=== PATIENT | female | born 1985 | race Caucasian/White ===

== ENCOUNTER 2017-01-19 11:10 | Emergency (ER) | payer OTHER ==
[~2017-01-19] VITALS: Ht 167.6 cm; Wt 83.9 kg
[~2017-01-19 11:10] MED LIST: SULF1TAB23 PO
[2017-01-19 11:41] VITALS: BP 138/88
[2017-01-19] MEDS ORDERED: SULF1TAB24 PO (12:09)
--- NOTE | 2017-01-19 12:09 | PHYS DOC ---
Past History Past Medical History: No Pertinent History Past Surgical History: Other Alcohol Use: None Drug Use: None Adult General Chief Complaint Chief Complaint: SKIN RASH/ABSCESS [facility] HPI Patient is a 31 year old female who presents with a skin rash she had since the of her child and she states nobody else in the family has any rash like this. She's been itching him. She's not been doing anything for the rash. Babies 1-month-old and she's not breast-feeding. Review of Systems Review of Systems Constitutional: Denies fever or chills [] Eyes: Denies change in visual acuity, redness, or eye pain [] HENT: Denies nasal congestion or sore throat [] Respiratory: Denies cough or shortness of breath [] Cardiovascular: No additional information not addressed in HPI [] GI: Denies abdominal pain, nausea, vomiting, bloody stools or diarrhea [] : Denies dysuria or hematuria [] Musculoskeletal: Denies back pain or joint pain [] Integument: Positive for skin lesions Neurologic: Denies headache, focal weakness or sensory changes [] Endocrine: Denies polyuria or polydipsia [] All other systems were reviewed and found to be within normal limits, except as documented in this note. Allergies Allergies Allergies Coded Allergies Type Severity Reaction Last Updated Verified No Known Drug Allergies 03/08/16 No Physical Exam Physical Exam Constitutional: Well developed, well nourished, no acute distress, non-toxic appearance. [] HENT: Normocephalic, atraumatic, bilateral external ears normal, oropharynx moist, no oral exudates, nose normal. [] Eyes: PERRLA, EOMI, conjunctiva normal, no discharge. [] Neck: Normal range of motion, no tenderness, supple, no stridor. [] Cardiovascular:Heart rate regular rhythm, no murmur [] Lungs & Thorax: Bilateral breath sounds clear to auscultation [] Abdomen: Bowel sounds normal, soft, no tenderness, no masses, no pulsatile masses. [] Skin: Warm, dry, no erythema, erythema around hair follicles on abdomen, numerous wounds on bilateral arms, no lesions noted on areas between fingers. Back: No tenderness, no CVA tenderness. [] Extremities: No tenderness, no cyanosis, no clubbing, ROM intact, no edema. [] Neurologic: Alert and oriented X 3, normal motor function, normal sensory function, no focal deficits noted. [] Psychologic: Affect normal, judgement normal, mood normal. [] Current Patient Data Vital Signs Vital Signs Date Time Temp Pulse Resp B/P (MAP) Pulse Ox O2 Delivery O2 Flow Rate FiO2 01/19/17 11:41 97.7 95 16 97 Room Air EKG EKG [] Radiology/Procedures Radiology/Procedures [] Impressions: Folliculitis Course & Med Decision Making Course & Med Decision Making Pertinent Labs and Imaging studies reviewed. (See chart for details) I believe she has folliculitis. Will discharge with Bactrim and Hibiclens. Return precautions given. She is agreeable to the plan and being discharged in stable condition this time. Patient was discharged without her tetanus being updated. I called her at home and she is unsure when her last tetanus shot was even though she had a baby 1 month ago. I've offered her a tetanus shot if she returns back to the ER. She states that she and find a ride she will come back to ER. Dragon Disclaimer Dragon Disclaimer This electronic medical record was generated, in whole or in part, using a voice recognition dictation system. Departure Departure: Impression: Primary Impression: Folliculitis Disposition: 01 HOME, SELF-CARE Condition: STABLE Referrals: PCP,JOAO (PCP) Patient Instructions: Cellulitis Additional Instructions: Your skin looks like you have an infection and some of the hair follicles. We call this folliculitis. You will need take Bactrim 1 pill twice a day for the next 7 days. You'll also purchase Hibiclens they can purchase in the pharmacy and watch with it every other day for a week. If you develop high fevers, worsening rash, or other concerns please return back to ER. You will need to follow up with her primary care physician within the next 4-5 days. Do not breast-feed while taking Bactrim. Scripts Sulfamethoxazole/Trimethoprim (BACTRIM DS TABLET) 1 Each Tablet 1 TAB PO BID, #14 TAB Prov: OLVIN BOWLING MD 01/19/17 OLVIN BOWLING MD Jan 19, 2017 12:09
== END 2017-01-19 12:18 | disposition home or self-care (01) ==
LOC: ER 11:10
DX: L73.9 Follicular disorder, unspecified (principal)
CPT/HCPCS: 99283

== ENCOUNTER 2017-03-16 13:26 | Emergency (ER) | payer OTHER ==
[~2017-03-16 13:26] MED LIST changes: +SULF1TAB24 PO
[2017-03-16] MEDS ORDERED: IBUP600T16 PO (13:44)
[2017-03-16] MEDS ORDERED: SULF1TAB24 PO (13:44)
--- NOTE | 2017-03-16 13:44 | PHYS DOC ---
Past History Past Medical History: No Pertinent History Past Surgical History: Other Alcohol Use: None Drug Use: None Adult General Chief Complaint Chief Complaint: INSECT BITE HPI HPI Patient is a 31-year-old female who presents here today complaining of a red indurated swollen area to her left lower quadrant of her abdomen that shewoke up this morning. Patient reports areas tender to palpation. Patient per she thinks she opted by an insect. Patient denies any other past medical history. Patient has any history of hypertension diabetes liver longer kidney problems. Patient is not allergic to any medications. Patient reports she smokes, occasional alcohol no drugs. Patient has any recent fevers shakes chills nausea vomiting diarrhea dysuria frequency or urgency. Review of systems: Constitutional: Denies fever or chills Eyes: Denies change in visual acuity, redness, or eye pain HENT: Denies nasal congestion or sore throat Respiratory: Denies cough or shortness of breath All other systems were reviewed and found to be within normal limits, except as documented in this note. Physical exam: Constitutional: Well developed, well nourished, no acute distress, non-toxic appearance. HENT: Normocephalic, atraumatic, bilateral external ears normal, nose normal. Eyes: PERRLA, EOMI, conjunctiva normal, no discharge. Neck: Normal range of motion, no tenderness, supple, no stridor. Cardiovascular: Heart rate regular rhythm, Lungs & Thorax: Bilateral breath sounds clear to auscultation Abdomen: No abdominal distention. Skin: Warm, dry, no erythema, Back: Normal spinal curvature Extremities: No tenderness, no cyanosis, no clubbing, ROM intact, no edema. Neurologic: Alert and oriented X 3, normal motor function, normal sensory function, no focal deficits noted. Psychologic: Affect normal, judgement normal, mood normal. Patient's ER physical exam was most remarkable: Tenderness to palpation to her left lower quadrant approximately 4 x 4 inches. There is a small area that looks like a small puncture wound/bite wound. No fluctuance, of abscess. Assessment and plan: 1. Cellulitis to abdomen wall. 31-year-old female who presents to the ED with sinus symptoms consistent with a cellulitis to abdominal wall most likely secondary to an insect bite or scratch/folliculitis. Patient be started on Bactrim DS 2 tablets by mouth twice a day 10 days as well as ibuprofen assist her with the pain. Precautions have been reviewed with the patient to return to the ER if the redness increases or increased fevers. Allergies Allergies Allergies Coded Allergies Type Severity Reaction Last Updated Verified No Known Drug Allergies 03/08/16 No EKG EKG [] Radiology/Procedures Radiology/Procedures [] Course & Med Decision Making Course & Med Decision Making Pertinent Labs and Imaging studies reviewed. (See chart for details) [] Dragon Disclaimer Dragon Disclaimer This electronic medical record was generated, in whole or in part, using a voice recognition dictation system. Departure Departure: Impression: Primary Impression: Cellulitis Disposition: HOME, SELF-CARE Condition: IMPROVED Referrals: PCP,NO (PCP) Patient Instructions: Cellulitis Scripts Ibuprofen (IBUPROFEN) 600 Mg Tablet 600 MG PO QID Y for PAIN, #20 Prov: MARIELLA OSUNA MD 03/16/17 Sulfamethoxazole/Trimethoprim (BACTRIM DS TABLET) 1 Each Tablet 2 TAB PO BID, #40 TAB Prov: MARIELLA OSUNA MD 03/16/17 MARIELLA OSUNA MD Mar 16, 2017 13:44
[2017-03-16] MEDS: IBUPROFEN 600 MG TABLET. PO ONE (13:56)
[2017-03-16] MEDS: SMZ/TMP 800/160MG TABLET. PO ONE (13:56)
[2017-03-16 14:02] VITALS: BP 125/84
== END 2017-03-16 14:02 | disposition home or self-care (01) ==
LOC: ER 13:26
DX: L03.311 Cellulitis of abdominal wall (principal)
CPT/HCPCS: 99283

== ENCOUNTER 2017-03-20 12:36 | Emergency (ER) | payer OTHER ==
[~2017-03-20] VITALS: Ht 165.1 cm; Wt 80.7 kg
[~2017-03-20 12:36] MED LIST changes: +IBUP600T16 PO
[2017-03-20] MEDS ORDERED: LIDOCAINE 1% Multi-Dose 20 ML VIAL. IJ ONE (13:45)
[2017-03-20] MEDS ORDERED: KETOROLAC 60 MG/2 ML VIAL. IM ONE (13:45)
[2017-03-20] MEDS ORDERED: TETANUS AND DIPHTHERIA TOX/PF 0.5 ML VIAL. VAX IM ONE (13:45)
[2017-03-20 15:45] VITALS: BP 115/71
[2017-03-20] MEDS ORDERED: HYDR-971 PO (15:50)
--- NOTE | 2017-03-20 15:50 | PHYS DOC ---
Past History Past Medical History: Kidney Stones Additional Past Medical Histor: history of MRSA Past Surgical History: Tubal ligation, Other Smoking: Cigarettes Alcohol Use: Occasionally Drug Use: None Adult General Chief Complaint Chief Complaint: INSECT BITE HPI HPI 31-year-old female patient was seen in this emergency room 4 days ago because of left side of abdominal wall erythema and discharged with prescription of Bactrim and ibuprofen but states the area getting worse with pain and more erythema without fever and chills. Patient states she had history of MRSA previously. Review of Systems Review of Systems Constitutional: Denies fever or chills [] Eyes: Denies change in visual acuity, redness, or eye pain [] HENT: Denies nasal congestion or sore throat [] Respiratory: Denies cough or shortness of breath [] Cardiovascular: No additional information not addressed in HPI [] GI: Denies abdominal pain, nausea, vomiting, bloody stools or diarrhea [] : Denies dysuria or hematuria [] Musculoskeletal: Denies back pain or joint pain [] Integument: Reports abscess Neurologic: Denies headache, focal weakness or sensory changes [] Endocrine: Denies polyuria or polydipsia [] All other systems were reviewed and found to be within normal limits, except as documented in this note. Current Medications Current Medications Current Medications Medications (Trade) Dose Ordered Sig/[facility] Start Time Stop Time Status Last Admin Dose Admin Ketorolac Tromethamine (Toradol) 60 mg 1X ONCE 03/20/17 13:45 03/20/17 13:47 DC 03/20/17 14:14 60 MG Lidocaine HCl 20 ml 1X ONCE 03/20/17 13:45 03/20/17 13:47 DC 03/20/17 14:20 20 ML Tetanus/ Diphtheria Toxoids Adsorbed (Tenivac Vial) 0.5 ml ONCE ONCE 03/20/17 13:45 03/20/17 13:47 DC 03/20/17 14:16 0.5 ML Allergies Allergies Allergies Coded Allergies Type Severity Reaction Last Updated Verified No Known Drug Allergies 03/08/16 No Physical Exam Physical Exam Constitutional: Well developed, well nourished,moderate distress, non-toxic appearance. [] HENT: Normocephalic, atraumatic, bilateral external ears normal, oropharynx moist, no oral exudates, nose normal. [] Eyes: PERRLA, EOMI, conjunctiva normal, no discharge. [] Neck: Normal range of motion, no tenderness, supple, no stridor. [] Cardiovascular:Heart rate regular rhythm, no murmur [] Lungs & Thorax: Bilateral breath sounds clear to auscultation [] Abdomen: Bowel sounds normal, soft, no tenderness, no masses, no pulsatile masses, large area of erythema and central abscess in left side of abdominal wall with fluctuation and tenderness Skin: Warm, dry, no erythema, no rash. [] Back: No tenderness, no CVA tenderness. [] Extremities: No tenderness, no cyanosis, no clubbing, ROM intact, no edema. [] Neurologic: Alert and oriented X 3, normal motor function, normal sensory function, no focal deficits noted. [] Psychologic: Affect normal, judgement normal, mood normal. [] Current Patient Data Vital Signs Vital Signs Date Time Temp Pulse Resp B/P (MAP) Pulse Ox O2 Delivery O2 Flow Rate FiO2 03/20/17 12:55 96.4 84 12 99 Room Air EKG EKG [] Radiology/Procedures Radiology/Procedures [] Course & Med Decision Making Course & Med Decision Making Intervention of patient in ER showed 31-year-old female patient is oriented to ER with abscess in left side of abdomen for that getting definitive with Bactrim and ibuprofen given in this emergency room. Local anesthesia abscess was drained and large amount of pus removed and packing. Please and patient instructed to return in 48 hours for removal of packing. Patient instructed to continue Bactrim and prescription for [place] was given. Dragon Disclaimer Dragon Disclaimer This electronic medical record was generated, in whole or in part, using a voice recognition dictation system. Departure Departure: Impression: Primary Impression: Abdominal wall abscess Additional Impressions: Tobacco abuse Tobacco abuse counseling Disposition: HOME, SELF-CARE (At 1548) Condition: IMPROVED Referrals: PCP,NO (PCP) Patient Instructions: Abscess, Community-Associated MRSA Additional Instructions: Continue home antibiotic Return in 48 hour for removing of the packing Scripts Hydrocodone Bit/Acetaminophen (NORCO 5-325 TABLET) 1 Each Tablet 1 TAB PO PRN Q6HRS Y for PAIN, #14 TAB 0 Refills Prov: ROBERTA ELLISON MD 03/20/17 Incision and Drainage Indication: [Abdominal wall abscess Procedure: The patient was positioned appropriately and the skin over the incision site was [PREP FOR PROCEDURE:]. Local anesthesia was [1% lidocaine]. An incision was then made over the abdominal wall:] and [large amount of pus:] material was expressed. Loculations were [removed:]. The drainage cavity was then [irrigated and packing was placed:]. The patients tetanus status was not up-to-date and tetanus was given in ER [TETANUS STATUS:]. The patient tolerated the procedure [well]. noneCOMPLICATIONS:] Problem Qualifiers ROBERTA ELLISON MD Mar 20, 2017 15:50
== END 2017-03-20 15:54 | disposition home or self-care (01) ==
LOC: ER 12:36
DX: L02.211 Cutaneous abscess of abdominal wall (principal); Z86.14 Personal history of Methicillin resistant Staphylococcus aureus infection; Z87.442 Personal history of urinary calculi; F17.210 Nicotine dependence, cigarettes, uncomplicated; Z71.6 Tobacco abuse counseling
CPT/HCPCS: 10060; 90471; 90714; 96372; 99284; J1885

== ENCOUNTER 2017-03-22 16:28 | Emergency (ER) | payer OTHER ==
[~2017-03-22] VITALS: Ht 165.1 cm; Wt 82.1 kg
[~2017-03-22 16:28] MED LIST changes: +HYDR-971 PO
--- NOTE | 2017-03-22 16:56 | PHYS DOC ---
Past History Past Medical History: Kidney Stones Additional Past Medical Histor: history of MRSA Past Surgical History: Tubal ligation, Other Smoking: Cigarettes Alcohol Use: Occasionally Drug Use: None Adult General Chief Complaint Chief Complaint: wound reevaluation HPI HPI sHe is a pleasant 31-year-old female with a history of MRSA on her face was recently seen in our emergency department 5 days ago and repeatedly 2 days ago for an abscess in her abdominal wall. She had the abdominal wall abscesses I&D by her provider here and had a packed with iodoform gauze. Patient has experienced improved pain control decreased swelling, decreased redness without systemic complaint of fever, chills joint pain or rash spreading. Patient is on hydrocodone and Bactrim for her symptoms and is improved significantly. She is here for wound check and wound repacking. She has no other complaints Review of Systems Review of Systems Constitutional: Denies fever or chills [] GI: Denies abdominal pain, nausea, vomiting, bloody stools or diarrhea [patient does have abdominal wall pain or the area was red and swollen] Musculoskeletal: Denies back pain or joint pain [] Integument: Positive for redness or localized swelling from a local abscess Neurologic: Denies headache, focal weakness or sensory changes [][] All other systems were reviewed and found to be within normal limits, except as documented in this note. Allergies Allergies Allergies Coded Allergies Type Severity Reaction Last Updated Verified No Known Drug Allergies 03/08/16 No Physical Exam Physical Exam Constitutional: Well developed, well nourished, no acute distress, non-toxic appearance. [] Cardiovascular:Heart rate regular rhythm, no murmur [] Lungs & Thorax: Bilateral breath sounds clear to auscultation [] Abdomen: Bowel sounds normal, soft, and is to palpation around the wound edges but no masses no evidence of abscess other than the soft tissue swelling noted around the wound edges. Erythema is noted Skin: Warm, dry, area of erythema on the abdominal wall is significantly decreased there is only slight erythema with minimal induration and soft tissue swelling around the abscess site itself. When the dressing was removed patient had clean wound edges with granulation tissue developing no active bleeding was discharge it was serosanguineous in nature. Neurologic: Alert and oriented X 3, Psychologic: Affect normal, judgement normal, mood normal. [] EKG EKG [] Radiology/Procedures Radiology/Procedures [] Course & Med Decision Making Course & Med Decision Making Pertinent Labs and Imaging studies reviewed. (See chart for details) []Patient presents with an improving abscess with decreased drainage and redness. Patient had the packing removed and replaced to keep the wound opening promote drainage. She is on hydrocodone and Bactrim or keep her on those medications. discharge: I've spoken with the patient and/or caregivers. I've explained the patient's condition, diagnosis and treatment plan based on information available to me at this time. I've answered the patient's and/or caregivers questions and addressed any concerns. The patient and/or caregivers have a good understanding the patient's diagnosis, condition and treatment plan as can be expected at this point. Vital signs have been stabilized. The patient's condition is stable for discharge from the emergency department. The patient will pursue further outpatient evaluation with her primary care provider or other designated consulting physician as outlined in the discharge instructions. Patient and/or caregivers are agreeable to this plan of care and follow-up instructions have been explained in detail. The patient and/or caregivers have received these instructions in written format and expressed understanding of these discharge instructions. The patient and her caregivers are aware that if any significant change in condition or worsening of symptoms should prompt him to immediately return to this of the closest emergency department. If an emergent department is not readily available I would encourage him to call 911. Olimpia Disclaimer Olimpia Disclaimer This electronic medical record was generated, in whole or in part, using a voice recognition dictation system. Departure Departure: Impression: Primary Impression: Wound check, abscess Additional Impression: Cutaneous abscess of abdominal wall Disposition: HOME, SELF-CARE Condition: STABLE Referrals: PCP,NO (PCP) Patient Instructions: Wound Check Additional Instructions: discharge: I've spoken with the patient and/or caregivers. I've explained the patient's condition, diagnosis and treatment plan based on information available to me at this time. I've answered the patient's and/or caregivers questions and addressed any concerns. The patient and/or caregivers have a good understanding the patient's diagnosis, condition and treatment plan as can be expected at this point. Vital signs have been stabilized. The patient's condition is stable for discharge from the emergency department. The patient will pursue further outpatient evaluation with her primary care provider or other designated consulting physician as outlined in the discharge instructions. Patient and/or caregivers are agreeable to this plan of care and follow-up instructions have been explained in detail. The patient and/or caregivers have received these instructions in written format and expressed understanding of these discharge instructions. The patient and her caregivers are aware that if any significant change in condition or worsening of symptoms should prompt him to immediately return to this of the closest emergency department. If an emergent department is not readily available I would encourage him to call 911. Problem Qualifiers DARI ROBERTSON MD Mar 22, 2017 16:56
[2017-03-22 17:07] VITALS: BP 128/85
== END 2017-03-22 17:07 | disposition home or self-care (01) ==
LOC: ER 16:28
DX: L02.211 Cutaneous abscess of abdominal wall (principal); Z48.01 Encounter for change or removal of surgical wound dressing; F17.210 Nicotine dependence, cigarettes, uncomplicated; Z87.442 Personal history of urinary calculi; Z86.14 Personal history of Methicillin resistant Staphylococcus aureus infection
CPT/HCPCS: 99283

== ENCOUNTER 2018-08-30 06:50 | Emergency (ER) | payer SELFPAY ==
[~2018-08-30] VITALS: Ht 165.1 cm; Wt 82.1 kg
[~2018-08-30 06:50] MED LIST changes: +HYDR-3165 PO; -HYDR-971 PO
[2018-08-30] MEDS ORDERED: SULF1TAB24 PO (07:12)
--- NOTE | 2018-08-30 07:13 | PHYS DOC ---
Past History Past Medical History: Kidney Stones Additional Past Medical Histor: history of MRSA Past Surgical History: Tubal ligation, Other Smoking: Cigarettes Alcohol Use: Occasionally Drug Use: None Adult General Chief Complaint Chief Complaint: cellulitis HPI HPI Patient is a 32-year-old female who presents with complaint of infection on her left lower leg that started a few days ago. Patient indicates that she has had a small amount of drainage from the wound. She denies any fever. She rates pain as moderate and states that pain is worsened with weightbearing. She reports having had a history of numerous similar infections which have successfully been treate d with Bactrim.[] Review of Systems Review of Systems Constitutional: Denies fever or chills [] Respiratory: Denies cough or shortness of breath [] Cardiovascular: No additional information not addressed in HPI [] Integument: Positive skin infection[] Neurologic: Denies headache, focal weakness or sensory changes [] Allergies Allergies Allergies Coded Allergies Type Severity Reaction Last Updated Verified No Known Drug Allergies 03/08/16 No Physical Exam Physical Exam Constitutional: Well developed, well nourished, no acute distress, non-toxic appearance. [] Cardiovascular:Heart rate regular rhythm, no murmur [] Lungs & Thorax: Bilateral breath sounds clear to auscultation [] Skin: Anterior aspect of left lower leg demonstrates an area approximately 5 x 7 cm of erythema, warmth and induration. No fluctuance is noted. [] Neurologic: Alert and oriented X 3, no focal deficits noted. [] EKG EKG [] Radiology/Procedures Radiology/Procedures [] Course & Med Decision Making Course & Med Decision Making Pertinent Labs and Imaging studies reviewed. (See chart for details) [] Dragon Disclaimer Dragon Disclaimer This electronic medical record was generated, in whole or in part, using a voice recognition dictation system. Departure Departure: Impression: Primary Impression: Cellulitis Disposition: 01 HOME, SELF-CARE Condition: STABLE Referrals: PCP,NO (PCP) Patient Instructions: Cellulitis Scripts Sulfamethoxazole/Trimethoprim (BACTRIM DS TABLET) 1 Each Tablet 1 TAB PO BID for infection, #20 TAB Prov: ALIN GRAY Jr. DO 08/30/18 Problem Qualifiers Primary Impression: Cellulitis Site of cellulitis: extremity Site of cellulitis of extremity: lower extremity Laterality: left Qualified Codes: L03.116 - Cellulitis of left lower limb ALIN GRAY Jr. DO Aug 30, 2018 07:13
[2018-08-30 07:15] VITALS: BP 158/103
[2018-08-30] MEDS ORDERED: ceFAZolin IM 1 GM VIAL IM ONE (07:30)
== END 2018-08-30 07:35 | disposition home or self-care (01) ==
LOC: ER 06:50
DX: L03.116 Cellulitis of left lower limb (principal); F17.210 Nicotine dependence, cigarettes, uncomplicated; Z86.14 Personal history of Methicillin resistant Staphylococcus aureus infection; Z87.442 Personal history of urinary calculi
CPT/HCPCS: 96372; 99283; J0690

== ENCOUNTER 2018-08-30 22:48 | Emergency (ER) | payer SELFPAY ==
[~2018-08-30] VITALS: Ht 165.1 cm; Wt 82.1 kg
--- NOTE | 2018-08-30 22:55 | ED.ADGEN ---
Past History Past Medical History: No Pertinent History Additional Past Medical Histor: history of MRSA Past Surgical History: Tubal ligation Smoking: Cigarettes Alcohol Use: None Drug Use: Marijuana Adult General Chief Complaint Chief Complaint ".. I was here earlier.. but I could not get the antibiotic filled.. .. I don't get paid until tomorrow...". I worried that infection is getting worse.. " HPI HPI Patient is a 32 year old female who presents with above hx and Lt.leg pain and 8 x 8 cm area of cellulitis with central necrotic area. No striations. No adenopathy. Pt. has hx prior MRSA. Distal neurovascular intact. Up to date with Tetanus., No history immunosuppression. No history of travel. Denies any specific ill contacts. Pt. seen earlier in ED on day shift. Pt. has financial noncompliance with filling of her antibiotics Bactrim. Review of Systems Review of Systems Constitutional: Denies fever or chills [] Eyes: Denies change in visual acuity, redness, or eye pain [] HENT: Denies nasal congestion or sore throat [] Respiratory: Denies cough or shortness of breath [] Cardiovascular: No additional information not addressed in HPI [] GI: Denies abdominal pain, nausea, vomiting, bloody stools or diarrhea [] : Denies dysuria or hematuria [] Musculoskeletal: Denies back pain or joint pain [] Integument: Complaints of left leg cellulitis Neurologic: Denies headache, focal weakness or sensory changes [] Endocrine: Denies polyuria or polydipsia [] All other systems were reviewed and found to be within normal limits, except as documented in this note. Family History Family History Noncontributory Current Medications Current Medications Current Medications Medications (Trade) Dose Ordered Sig/Lucita Start Time Stop Time Status Last Admin Dose Admin Ceftriaxone Sodium (Rocephin Im) 2 gm 1X ONCE 08/30/18 23:30 08/31/18 00:04 DC 08/30/18 23:30 2 GM Ceftriaxone Sodium (Rocephin) 2 gm STK-MED ONCE 08/30/18 23:52 08/30/18 23:53 DC Ketorolac Tromethamine (Toradol Im) 60 mg 1X ONCE 08/30/18 23:30 08/31/18 00:04 DC 08/30/18 23:58 60 MG Trimethoprim/ Sulfamethoxazole (Bactrim Ds) 1 tab 1X ONCE 08/30/18 23:30 08/30/18 23:31 UNV Allergies Allergies Allergies Coded Allergies Type Severity Reaction Last Updated Verified No Known Drug Allergies 03/08/16 No Physical Exam Physical Exam Constitutional: Moderate acute distress, non-toxic appearance. [] HENT: Normocephalic, atraumatic, bilateral external ears normal, oropharynx moist, no oral exudates, nose normal. []Poor dentition Eyes: PERRLA, EOMI, conjunctiva normal, no discharge. [] Neck: Normal range of motion, no tenderness, supple, no stridor. [] Cardiovascular:Heart rate regular rhythm, no murmur [] Lungs & Thorax: Bilateral breath sounds at apexes scattered wheezes on auscultation [] Abdomen: Bowel sounds normal, soft, no tenderness, no masses, no pulsatile masses. [] Skin: Warm, dry, no erythema, no rash. Except area cellulitis left leg as per hi story of present illness Back: No tenderness, no CVA tenderness. [] Extremities: No tenderness, no cyanosis, no clubbing, ROM intact, no edema. [] Neurologic: Alert and oriented X 3, normal motor function, normal sensory function, no focal deficits noted. [] Psychologic: Affect anxious, judgement normal, mood normal. [] EKG EKG [] Radiology/Procedures Radiology/Procedures [] Course & Med Decision Making Course & Med Decision Making Pertinent Labs and Imaging studies reviewed. (See chart for details). Patient to use warm salt water compresses or Epsom salts compresses 4 times a day. Then massage Polysporin into the area of cellulitis 4 times a day. Patient take Tylenol and ibuprofen for pain. Patient fell Bactrim prescription. Patient return if any concerns. Patient encouraged to stop smoking. [] Final Impression Final Impression 1. Cellulitis Lt Leg.[] Dragon Disclaimer Dragon Disclaimer This electronic medical record was generated, in whole or in part, using a voice recognition dictation system. Discharge Summary Visit Information Final Diagnosis Problems Medical Problems: (1) Cellulitis Status: Acute Brief Hospital Course Allergies Allergies Coded Allergies Type Severity Reaction Last Updated Verified No Known Drug Allergies 03/08/16 No Brief Hospital Course Ms. North is a 32 old female who presented with Lt leg cellulitis and financial med. non-compliance. Discharge Information Condition at Discharge: Stable Disposition/Orders: D/C to Home Dischare Medications Current Medications Ceftriaxone Sodium (Rocephin Im) 2 gm 1X ONCE IM Last administered on 08/30/18at 23:30; Admin Dose 2 GM; Start 08/30/18 at 23:30; Stop 08/31/18 at 00:04; Status DC Trimethoprim/ Sulfamethoxazole (Bactrim Ds) 1 tab 1X ONCE PO Last administered on 08/30/18at 23:58; Admin Dose 1 TAB; Start 08/30/18 at 23:30; Stop 08/31/18 at 00:05; Status DC Trimethoprim/ Sulfamethoxazole (Bactrim Ds) 1 tab 1X ONCE PO ; Start 08/30/18 at 23:30; Stop 08/30/18 at 23:31; Status UNV Ketorolac Tromethamine (Toradol Im) 60 mg 1X ONCE IM Last administered on 08/30/18at 23:58; Admin Dose 60 MG; Start 08/30/18 at 23:30; Stop 08/31/18 at 00 :04; Status DC Ceftriaxone Sodium (Rocephin) 2 gm STK-MED ONCE IV ; Start 08/30/18 at 23:52; Stop 08/30/18 at 23:53; Status DC Active Scripts Active Bactrim Ds Tablet (Sulfamethoxazole/Trimethoprim) 1 Each Tablet 1 Tab PO BID [place] 5-325 Tablet (Hydrocodone Bit/Acetaminophen) 1 Each Tablet 1 Tab PO PRN Q6HRS PRN Ibuprofen 600 Mg Tablet 600 Mg PO QID PRN Bactrim Ds Tablet (Sulfamethoxazole/Trimethoprim) 1 Each Tablet 2 Tab PO BID Bactrim Ds Tablet (Sulfamethoxazole/Trimethoprim) 1 Each Tablet 1 Tab PO BID Bactrim 400-80 Mg Tablet (Sulfamethoxazole/Trimethoprim) 1 Each Tablet 1 Tab PO BID Dragon Disclaimer This chart was dictated in whole or in part using Voice Recognition software in a busy, high-work load, and often noisy Emergency Department environment. It may contain unintended and wholly unrecognized errors or omissions. CATHIE LEWIS MD Aug 30, 2018 22:55
[2018-08-30 23:00] VITALS: BP 152/97
[2018-08-30] MEDS ORDERED: SMZ/TMP 800/160MG TABLET. PO ONE ×2 (23:30)
[2018-08-30] MEDS ORDERED: cefTRIAXone IM 1 GM VIAL IM ONE (23:30)
[2018-08-30] MEDS ORDERED: KETOROLAC 60 MG/2 ML VIAL. IM ONE (23:30)
== END 2018-08-31 00:15 | disposition home or self-care (01) ==
LOC: ER 22:48
DX: L03.116 Cellulitis of left lower limb (principal); F17.210 Nicotine dependence, cigarettes, uncomplicated; Z86.14 Personal history of Methicillin resistant Staphylococcus aureus infection
CPT/HCPCS: 96372; 99284; J0696; J1885

== ENCOUNTER 2019-11-03 22:03 | Inpatient (IN) | payer SELFPAY ==
[~2019-11-03] VITALS: Ht 165.1 cm; Wt 79.0 kg
--- NOTE | 2019-11-03 22:10 | PHYS DOC ---
Past History Past Medical History: No Pertinent History, Anxiety, Bronchitis, MRSA Additional Past Medical Histor: history of MRSA Past Surgical History: Tubal ligation Smoking: Cigarettes Alcohol Use: None Drug Use: Amphetamine, Heroin, Marijuana General Adult HPI: HPI: "I got a lump in my throat.. and its really painful...it hard to swallow.... it been going on several days... "..It just popped up... ".. " Now I got fever, and sore throats.. " Patient is a 34 year old female who presents with above hx and complaints of fever, chills, adenopathy primarily on right cervical area and pharyngitis. Symptoms have been present for several days however much more severe tonight. Patient does have several previous episodes of cellulitis and MRSA. Patient denies any immunosuppression. Patient denies any recent IV drug use, but has used IV drug use in the past. Teeth appear stable. No obvious pointing abscess on right lower mandible area. Mass is palpable. Does have bilateral cervical adenopathy-but primary area of enlargement is the right anterior cervical chain. Patient does have findings consistent with right external jugular scars or needle sticks. Patient denies any recent travel outside [facility]. Patient denies immunosuppression or HIV. Review of Systems: Review of Systems: Constitutional: History of fever or chills Eyes: Denies change in visual acuity HENT: History of sore throat Respiratory: History of cough and shortness of breath Cardiovascular: Denies chest pain or edema GI: Denies abdominal pain, , vomiting, bloody stools or diarrhea . Complains of nausea : Denies dysuria Musculoskeletal: Complaints of generalized musculoskeletal pain Integument: Denies rash Neurologic: Complains of headache,. Denies focal weakness or sensory changes Endocrine: Denies polyuria or polydipsia Lymphatic: Denies swollen glands Psychiatric: Complains of anxiety Heart Score: HEART Score for Chest Pain: HEART Score for Chest Pain Response (Comments) Value History Slighlty/Non-Suspicious 0 Age < 45 0 Risk Factors 1 or 2 Risk Factors 1 Troponin < Normal Limit 0 Total 1 Risk Factors: Risk Factors: DM, Current or recent (<one month) smoker, HTN, HLP, family history of CAD, obesity. Risk Scores: Score 0 - 3: 2.5% MACE over next 6 weeks - Discharge Home Score 4 - 6: 20.3% MACE over next 6 weeks - Admit for Clinical Observation Score 7 - 10: 72.7% MACE over next 6 weeks - Early Invasive Strategies Family History: Family History: Noncontributory to presentation Current Medications: Current Meds: See nursing for home meds Allergies: Allergies: Allergies Coded Allergies Type Severity Reaction Last Updated Verified No Known Drug Allergies 03/08/16 No Physical Exam: PE: Constitutional: In acute distress, ill in appearance. [] HENT: Normocephalic, old needle leach right external IJ area, bilateral external ears normal, oropharynx injected , no oral exudates, nose normal. [] Eyes: PERRLA, EOMI, conjunctiva normal, no discharge. [] Neck: Limited range of motion due to tenderness, bilateral adenopathy more on right than left, no stridor. [] Cardiovascular: Tachycardia heart rate regular rhythm, no murmur [] Lungs & Thorax: Bilateral breath sounds equal apex with scattered wheezes on auscultation [] Abdomen: Bowel sounds normal, soft, mild right upper quadrant tenderness, no masses, no pulsatile masses. Rebound to right upper quadrant. Old surgery scars. Skin: Warm, diaphoretic, no erythema, no rash. Multiple old needle leach from IV drug use on both arms and legs. No fresh leach appreciated. Tattoos Back: No tenderness, no CVA tenderness. [] Extremities: Generalized muscle tenderness, no cyanosis, no clubbing,, no edema. [] Neurologic: Alert and oriented X 3, moves all extremities on request, distal sensory, no focal deficits noted. DTRs +2 patellar and brachial. Shirt Trimmer equal. No drift.. Psychologic: Affect anxious, tearful, judgement normal, mood depressed EKG: EKG: My interpretation EKG shows a sinus rhythm at 95 bpm. No acute morphology. No findings acute STEMI with contralateral changes. [] Radiology/Procedures: Radiology/Procedures: [[facility] [address] [place] [id number] IMAGING REPORT Signed PATIENT: RUSSELL BLACKWELL ACCOUNT: [id number] : 1985 LOCATION: ER AGE: 34 SEX: F EXAM STATUS: REG ER ORD. PHYSICIAN: CATHIE LEWIS MD REASON: dyspnea, cough PROCEDURE: CHEST PA & LATERAL Chest, PA and Lateral: Technique: PA and lateral views of the chest were obtained. History: Dyspnea. Comparison: None. Findings: The heart and pulmonary vasculature appear within normal limits. The lungs are clear. The pleural margins are clear. Impression: No acute chest process is seen. Electronically signed by: Justin Dang MD (11/04/2019 1:56 AM) [id number] DICTATED AND SIGNED BY: JUSTIN DANG MD DATE: 11/04/19 0156 CC: CATHIE LEWIS MD; PCP,NO ~ ][place] [address] IMAGING REPORT Signed PATIENT: RUSSELL BLACKWELL ACCOUNT: [id number] : 1985 LOCATION: ER AGE: 34 SEX: F EXAM STATUS: REG ER ORD. PHYSICIAN: CATHIE LEWIS MD REASON: RIGHT NECK MASS, H/O MRSA & IV DRUG USE. PROCEDURE: CT NECK CHEST W/CONT Examination: CT neck and chest with IV contrast HISTORY: History of right neck mass, history of drug use COMPARISON: None TECHNIQUE: Axial CT images of the neck and chest were performed with IV contrast. Coronal and sagittal reformats are performed. Exposure: One or more of the following individualized dose reduction techniques were utilized for this examination: 1. Automated exposure control 2. Adjustment of the mA and/or kV according to patient size 3. Use of iterative reconstruction technique FINDINGS: The visualized intracranial portion grossly appears unremarkable. Multiple enlarged cervical lymph nodes identified with the largest measuring 2.5 cm in the right cervical level II region with inflammatory fat stranding identified about the right cervical lymph node. A smaller cervical lymph nodes identified in the left in the cervical level II region the visualized parapharyngeal fat grossly appears unremarkable. The visualized vallecula, piriform sinuses grossly appears unremarkable The visualized thyroid gland grossly appears unremarkable The lungs are clear. The visualized spleen, adrenals grossly appears unremarkable. There is questionable pericholecystic fluid partially visualized. Mild degenerative changes cervical and thoracic spine. IMPRESSION: 1. Bilateral cervical lymphadenopathy most prominent on the right with surrounding inflammatory fat stranding surrounding the enlarged lymph node in the right cervical level II region could be secondary to inflammatory or infectious etiology. 2. Lungs are clear. 3. Questionable pericholecystic fluid partially visualized. Consider follow-up ultrasound right upper quadrant abdomen. Electronically signed by: Justin Dang MD (11/04/2019 1:14 AM) [id number] DICTATED AND SIGNED BY: JUSTIN DANG MD DATE: 11/04/19 0114 CC: CATHIE LEWIS MD; PCP,NO ~ Course & Med Decision Making: Course & Med Decision Making Pertinent Labs and Imaging studies reviewed. (See chart for details) Patient declines spinal tap-reviewed risk and benefits.. Does exhibit basic UCAR capacity. Patient received IV Rocephin and vancomycin. Discussed presentation, testing and tx. plan with Dr. Puga. Plan admit. Pt. now refusing admission at 0302 hrs. Pt. now requesting admission 0336 Impression: 1. Marked cervical adenopathy ( No Abscess) Rt >Lt. 2. History of MRSA 3. History of polysubstance abuse and IV drug abuse ( States she not used IV heroin now for more than 6 months.) 4. Elevated AST, ALT, AkPhos 133/327/176 5. UTI 6. Strept + 7. Drug Screen + for Meth. and MJ 8. Tobacco Use [] Dragon Disclaimer: Dragon Disclaimer: This electronic medical record was generated, in whole or in part, using a voice recognition dictation system. Departure Departure: Disposition: HOME/RESIDENCE PRIOR TO ADM Condition: STABLE Referrals: PCP,NO (PCP) Scripts Cephalexin (KEFLEX) 500 Mg Capsule 500 MG PO TID for strept for 10 Days, BOTTLE Prov: CATHIE LEWIS MD 11/04/19 Justification of Admission: Justification of Admission: Justification of Admission Dx: Yes Sepsis: Infection Dragon Disclaimer This chart was dictated in whole or in part using Voice Recognition software in a busy, high-work load, and often noisy Emergency Department environment. It may contain unintended and wholly unrecognized errors or omissions. CATHIE LEWIS MD Nov 03, 2019 22:10
[2019-11-03] MEDS ORDERED: TETANUS AND DIPHTHERIA TOX/PF 0.5 ML VIAL. VAX IM ONE (23:00)
[2019-11-03] MEDS ORDERED: IV RINGERS SOLUTION,LACTATED 1,000 ML IV SCH (23:00)
[2019-11-03] MEDS ORDERED: CONTRAST GIVEN. MC PRN (23:00)
[2019-11-03] MEDS ORDERED: VANCOMYCIN 1 GM in IV NORMAL SALINE 250ML 250 ML IV ONE (23:00)
[2019-11-03] MEDS ORDERED: IOHEXOL 350 MG/ML 100 ML VIAL. IV ONE ×2 (23:00→23:30)
[2019-11-03] MEDS ORDERED: cefTRIAXone IM 1 GM VIAL IM ONE (23:00)
[2019-11-03] MEDS ORDERED: ACETAMINOPHEN 500 MG TABLET PO ONE (23:15)
[2019-11-03] MEDS ORDERED: IV NORMAL SALINE 250ML 250 ML ONE (23:24)
[2019-11-03] MEDS ORDERED: VANCOMYCIN 1 GM VIAL. ONE (23:24)
[2019-11-03] MEDS ORDERED: IV NORMAL SALINE 100ML 100 ML ONE (23:31)
[2019-11-03] MEDS ORDERED: diphenhydrAMINE 50 MG/ML VIAL ONE (23:42)
[2019-11-03] MEDS ORDERED: diphenhydrAMINE 50 MG/ML VIAL IVP ONE (23:45)
[2019-11-03 23:48] LABS: BASO % 1 % (0-3); EOS % 0 % (0-3); HEMATOCRIT 42.5 % (36.0-47.0); HEMOGLOBIN 14.1 g/dL (12.0-15.5); LYMPH # 2.1 x10^3/uL (1.0-4.8); LYMPH % 29 % (24-48); MEAN CORPUSCULAR HEMOGLOBIN 29 pg (25-35); MEAN CORPUSCULAR HGB CONC 33 g/dL (31-37); MEAN CORPUSCULAR VOLUME 87 fL (79-100); MONO # 0.7 x10^3/uL (0.0-1.1); MONO % 9 % (0-9); NEUT # 4.5 x10^3uL (1.8-7.7); NEUT % 62 % (31-73); PLATELET COUNT 264 x10^3/uL (140-400); RED CELL DISTRIBUTION WIDTH 15.7 % (11.5-14.5); WHITE BLOOD COUNT 7.3 x10^3/uL (4.0-11.0)
[2019-11-04 00:02] LABS: BACTERIA,URINE 0 /HPF (0-FEW); BILIRUBIN,URINE NEG (NEG); CLARITY,URINE CLEAR; COLOR,URINE YELLOW; GLUCOSE,URINE NEG (NEG); NITRITE,URINE NEG (NEG); RBC,URINE 0 /HPF (0-2); SQUAMOUS EPITHELIAL CELL,UR MOD /LPF
[2019-11-04 00:07] LABS: CALCIUM 8.7 mg/dL (8.5-10.1); CREATININE 0.8 mg/dL (0.6-1.0); GFR 81.6; POTASSIUM 3.9 mmol/L (3.5-5.1)
[2019-11-04 00:21] LABS: ALBUMIN 3.2 g/dL (3.4-5.0); DIRECT BILIRUBIN 0.2 mg/dL (0.0-0.2); MAGNESIUM 1.8 mg/dL (1.8-2.4); TOTAL BILIRUBIN 0.4 mg/dL (0.2-1.0); TOTAL PROTEIN 7.9 g/dL (6.4-8.2)
[2019-11-04 00:21] LABS: AMPHETAMINE/METHAMPHETAMINE POS (NEG); BARBITURATES NEG (NEG); BENZODIAZEPINES NEG (NEG); CANNABINOIDS POS (NEG); COCAINE NEG (NEG); METHADONE NEG (NEG); OPIATES NEG (NEG); PHENCYCLIDINE NEG (NEG)
[2019-11-04] MEDS ORDERED: IOHEXOL 300 MG/ML 75 ML VIAL. IV ONE (01:00)
--- NOTE | 2019-11-04 01:16 | RAD ---
Examination: CT neck and chest with IV contrast HISTORY: History of right neck mass, history of drug use COMPARISON: None TECHNIQUE: Axial CT images of the neck and chest were performed with IV contrast. Coronal and sagittal reformats are performed. Exposure: One or more of the following individualized dose reduction techniques were utilized for this examination: 1. Automated exposure control 2. Adjustment of the mA and/or kV according to patient size 3. Use of iterative reconstruction technique FINDINGS: The visualized intracranial portion grossly appears unremarkable. Multiple enlarged cervical lymph nodes identified with the largest measuring 2.5 cm in the right cervical level II region with inflammatory fat stranding identified about the right cervical lymph node. A smaller cervical lymph nodes identified in the left in the cervical level II region the visualized parapharyngeal fat grossly appears unremarkable. The visualized vallecula, piriform sinuses grossly appears unremarkable The visualized thyroid gland grossly appears unremarkable The lungs are clear. The visualized spleen, adrenals grossly appears unremarkable. There is questionable pericholecystic fluid partially visualized. Mild degenerative changes cervical and thoracic spine. IMPRESSION: 1. Bilateral cervical lymphadenopathy most prominent on the right with surrounding inflammatory fat stranding surrounding the enlarged lymph node in the right cervical level II region could be secondary to inflammatory or infectious etiology. 2. Lungs are clear. 3. Questionable pericholecystic fluid partially visualized. Consider follow-up ultrasound right upper quadrant abdomen. Electronically signed by: Justin Dang MD (11/04/2019 1:14 AM) [id number]
--- NOTE | 2019-11-04 01:59 | RAD ---
Chest, PA and Lateral: Technique: PA and lateral views of the chest were obtained. History: Dyspnea. Comparison: None. Findings: The heart and pulmonary vasculature appear within normal limits. The lungs are clear. The pleural margins are clear. Impression: No acute chest process is seen. Electronically signed by: Justin Dang MD (11/04/2019 1:56 AM) [id number]
[2019-11-04 02:28] LABS: U PREG PATIENT NEGATIVE (NEG)
[2019-11-04] MEDS ORDERED: CEPH-264 PO (03:05)
[2019-11-04] MEDS ORDERED: predniSONE 10 MG TABLET PO ONE (03:15)
[2019-11-04] MEDS ORDERED: ONDANSETRON PF 4 MG/2 ML VIAL. IVP PRN ×2 (03:45→04:00)
[2019-11-04] MEDS ORDERED: KETOROLAC 15 MG/ML VIAL. IVP PRN ×2 (03:45→04:00)
[2019-11-04] MEDS ORDERED: IV RINGERS SOLUTION,LACTATED 1,000 ML IV SCH (03:45)
[2019-11-04] MEDS ORDERED: ACETAMINOPHEN 325 MG TABLET PO PRN ×2 (03:45→04:00)
[2019-11-04] MEDS: IV RINGERS SOLUTION,LACTATED 1,000 ML IV SCH ×2 (04:00→09:08)
[2019-11-04 04:15] VITALS: BP 140/93
--- NOTE | 2019-11-04 04:30 | NUR ---
Pt admitted to 1S room 119 via EMS from ER. A full complete history and assessment obtained. Oriented pt to unit, nurse, call light and plan of care. V/U stated.
[2019-11-04] MEDS: IPRATRPIUM/ALBUTEROL 0.5/2.5MG 3 ML NEBU. NEB SCH ×2 (05:44→11:23)
--- NOTE | 2019-11-04 07:25 | EKG ---
[address] [address] Test Date: 2019-11-03 Test Time: 23:36:31 Pat Name: RUSSELL BLACKWELL Department: Room: Gender: F Anesthesiology Medical Doctor: : 1985 Requested By: CATHIE LEWIS Order Number: [id number] Reading MD: Measurements Intervals [place] Rate: 95 P: 66 NE: 122 QRS: 61 QRSD: 86 T: 52 QT: 320 QTc: 405 Interpretive Statements SINUS RHYTHM NORMAL ECG RI6.02 No previous ECG available for comparison
[2019-11-04] MEDS ORDERED: IPRATRPIUM/ALBUTEROL 0.5/2.5MG 3 ML NEBU. NEB SCH (08:00)
[2019-11-04] MEDS: LACTOBACILLUS RHAMNOSUS GG 1 CAPSULE. PO SCH ×2 (09:08→20:42)
--- NOTE | 2019-11-04 10:57 | NUR ---
NURSING NOTE PT WAS SLEEPING THIS AM UPON ASSESSMENT AND MEDICATION ADMINISTRATION. PT IS A&O, PLEASANT. PT C/O PAIN IN HER THROAT. PT HAS ORDERS FOR LACTATED RINGERS THAT WERE NOT STARTED. FLUIDS STARTED THIS AM. PT WAS SITTING ON BEDSIDE, STATING THAT HER THROAT WAS CAUSING HER SEVERE PAIN. DR ETIENNE NOTIFIED. ORDER OBTAINED FOR VELVET GLOVE AND BENZOCAINE SPRAY. BENZOCAINE SPRAY ADMINISTERED, PT FELT IMMEDIATE RELIEF. STATES "THANK YOU". INFORMED PT TO CALL IF SHE EXPERIENCES ANY SOA OR THE PAIN COMES BACK. WILL CONTINUE TO MONITOR. FRANCES ABAD.
[2019-11-04] MEDS ORDERED: MAALOX:LIDO:APAP 6:2:1 ORAL SUSPENSION 180 ML BOTTLE. PO PRN (11:00)
[2019-11-04] MEDS ORDERED: BENZOCAINE ONE 20% MUCOSAL SPRAY. MM (11:00)
[2019-11-04] MEDS ORDERED: VANCOMYCIN PER PHARMACY MC PRN (16:00)
[2019-11-04 16:15] VITALS: BP 138/90
[2019-11-04] MEDS ORDERED: IPRATRPIUM/ALBUTEROL 0.5/2.5MG 3 ML NEBU. NEB PRN (16:15)
[2019-11-04] MEDS: POTASSIUM CL 40MEQ D5-0.45NACL 1,000 ML IV SCH (16:44)
[2019-11-04] MEDS: diphenhydrAMINE 50 MG/ML VIAL IVP PRN (16:45)
[2019-11-04] MEDS: VANCOMYCIN 1.25 GM in IV NORMAL SALINE 250ML 250 ML IV SCH (17:27)
--- NOTE | 2019-11-04 17:55 | NUR ---
Pharmacy Vancomycin Dosing Note S:Consulted to monitor and dose vancomycin started 11/03/19. O:RUSSELL BLACKWELL is a 34 year old F with , MRSA . Height: 5 feet, 5 inches Weight: 79.0 kg [place] Body Weight: 57.00 Adjusted Body Weight: 65.80 Dosing Weight: Actual Other Antibiotics: ROCEPHIN LABS: Last BUN: 10 Last Creatinine: 0.8 Creatinine Clearance: 101.95 Last WBC: 7.3 Vancomycin Dosing: Loading Dose: x1 Dosing Weight: Actual Target Trough: 10-20 PATEINT RECEIVED 1GM IV IN ED 11/03 AT 2330 A: Based on: Actual weight, renal function and indication P: 1. Begin Vancomycin 1250 mg IV q8h 2. Follow up Trough level on 11/05/19 at 1630 3. Pharmacy will continue to monitor, follow and adjust therapy as needed. GWENDOLYN GARCIA, 11/04/19 2644
[2019-11-04 19:15] VITALS: BP 121/77
[2019-11-04 22:57] VITALS: BP 132/92
[2019-11-05] MEDS: diphenhydrAMINE 50 MG/ML VIAL IVP PRN (00:38)
[2019-11-05] MEDS: POTASSIUM CL 40MEQ D5-0.45NACL 1,000 ML IV SCH (00:38)
[2019-11-05] MEDS: VANCOMYCIN 1.25 GM in IV NORMAL SALINE 250ML 250 ML IV SCH (00:38)
--- NOTE | 2019-11-05 04:02 | PN ---
DATE: 11/04/2019 SUBJECTIVE: The patient is a 34-year-old female patient who came to the Emergency Room complaining of lump in her throat that is really painful, hard to swallow, has been going on for several days. Her chest propped up. She has also fever and sore throat. She also complained of chills. Symptom has been present for several days; however, much more severe on admission. The patient does have similar previous episode of cellulitis and MRSA. She denies any immunosuppressive therapy. Denied any recent IV drug use, although she has used IV drugs before. There is no obvious pointing abscess in the right lower mandible area, masses palpable and painful. She has bilateral cervical lymphadenopathy, primarily area of enlargement in the right anterior cervical chain. Does have finding consistent with right external jugular scars and needle sticks. She was extensively investigated. Her lab work showed her white cell count was normal. Her chemistry showed elevated liver enzymes with elevated AST, ALT, alkaline phosphatase, and her total bilirubin was normal. Her urinalysis was essentially unremarkable. test was negative. Her toxic screen was positive for methamphetamine, amphetamine as well as cannabinoids. She did have a group A streptococcus rapid test which was positive. Her chest x-ray showed the heart and pulmonary vasculature appeared within normal limits. The lungs are clear. The pleural margins are clear. CT scan of the neck and chest with IV contrast showed bilateral cervical lymphadenopathy, most prominent on the right, with surrounding inflammatory fat stranding, surrounding the enlarged lymph nodes in the right cervical level 2 regions, could be secondary to inflammation or infectious etiology. Lungs are clear. Questionable pericholecystic fluid, partially visualized. Consider followup ultrasound, right upper quadrant of abdomen. The patient was admitted with Streptococcal, sore throat. The patient is known to have history of polysubstance abuse and IV drug abuse, elevated AST, ALT, alkaline phosphatase. Drug screen was positive for methamphetamine and marijuana. She was given IV vancomycin as well as Rocephin and was admitted for further evaluation and treatment. PAST MEDICAL HISTORY: Significant for previous episode of Streptococcus pharyngitis as well as mononucleosis and history of nephrolithiasis that required cystoscopy and retrograde pyelography and retrieval of stones. PAST SURGICAL HISTORY: Significant for tubal ligation. ALLERGIES: She has no known drug allergies. MEDICATIONS: She is currently on no medication by prescription or [id number]. FAMILY HISTORY: Noncontributory. SOCIAL HISTORY: She is , has 6 children. She smokes a pack a day, does not drink alcohol, smokes weed, occasionally uses methamphetamine, the last time she used was about 2 weeks ago. She works as a sales engagement executive. REVIEW OF SYSTEMS: The patient denied any blurring of vision, cataract, glaucoma or macular degeneration. Denied any earache, tinnitus or sensorineural deafness. Denied any nosebleeds, stuffy nose or postnasal drip. Denied any sore throat, sore tongue, toothache, hoarseness of voice. Did complain of difficulty swallowing, had some nausea, but no vomiting, no diarrhea or constipation. She denied any dysuria, frequency or hematuria. Denied any chest pain, shortness of breath, orthopnea or paroxysmal nocturnal dyspnea. Denied any cough, phlegm or hemoptysis. PHYSICAL EXAMINATION: GENERAL: When I examined her this afternoon, she looked well and was clearly in no apparent respiratory distress. No pallor, jaundice, cyanosis or thyromegaly. No jugular venous distention. No lower limb edema. VITAL SIGNS: Her heart rate was 75, blood pressure was 140/93, temperature was 98, respiratory rate was 20, and oxygen saturation was 97%. HEAD, EYES, EARS, NOSE AND THROAT: Normocephalic, atraumatic. Examination of the oral cavity, pharynx is inflamed, left side tonsils with markedly tender lymph nodes, mostly in the right side of the neck. NECK: Supple. HEART: Showed normal first and second heart sounds. No gallop or murmur. CHEST: Clear to auscultation. No crepitation or rhonchi. ABDOMEN: Distended, soft, nontender. NEUROLOGIC: She is awake, alert, responding appropriately. All cranial nerves intact. She moves extremities without difficulty. LABORATORY DATA: Showed a white cell count 7300, hemoglobin 14, hematocrit 42, MCV 87 and platelet count 264,000. Her chemistry showed serum sodium of 132, potassium 3.9, chloride 97, bicarbonate 25, anion gap of 10, BUN 10, creatinine 0.8, estimated GFR was 82 mL per minute. Her glucose is ____. Lactic acid 0.8, calcium was 8.7, magnesium was 1.8. Total bilirubin is 0.4. AST, ALT, alkaline phosphatase are elevated. Her BNP was 373. Total protein 7.9, albumin was 3.2. Lipase was 125 and TSH was 0.301. Her prothrombin time, INR and aPTT were normal. Urinalysis was essentially unremarkable. Toxic screen was positive for amphetamine, methamphetamine and cannabinoids and her rapid strep test was positive. The chest x-ray was unremarkable. CT scan of the neck and chest with contrast showed that the lungs are clear. She has bilateral cervical lymphadenopathy, most prominent in the right with surrounding inflammatory fat stranding surrounding the enlarged lymph nodes in the right cervical level 2 region, could be secondary to inflammatory or infectious etiology. PLAN: To continue with IV antibiotics, IV pain medication and IV fluids, and monitor her lab work closely. KAYLEEN ETIENNE MD DR: SIMÓN/constantine JOB#: [id number] / [id number]
[2019-11-05 05:30] VITALS: BP 126/82
[2019-11-05 06:11] LABS: HEMATOCRIT 37.4 % (36.0-47.0); HEMOGLOBIN 12.5 g/dL (12.0-15.5); RED BLOOD COUNT 4.29 x10^6/uL (3.50-5.40); RED CELL DISTRIBUTION WIDTH 15.3 % (11.5-14.5); WHITE BLOOD COUNT 6.1 x10^3/uL (4.0-11.0)
[2019-11-05 06:29] LABS: ALBUMIN 2.3 g/dL (3.4-5.0); ALBUMIN/GLOBULIN RATIO 0.5 (1.0-1.7); CREATININE 0.7 mg/dL (0.6-1.0); GFR 95.2; POTASSIUM 4.6 mmol/L (3.5-5.1); TOTAL BILIRUBIN 0.1 mg/dL (0.2-1.0); TOTAL PROTEIN 6.6 g/dL (6.4-8.2)
--- NOTE | 2019-11-05 08:27 | NUR ---
PATIENT REPORTED THAT SHE WILL BE LEAVING HOSPITAL AMA. PATIENT WAS INFORMED THAT SHE WON'T GET PRESCRIPTIONS FOR ANTIBIOTICS. PT VERBALIZED UNDERSTANDING, PATIENT SIGNED AMA FORM, THIS RN WITNESSED IT.
--- NOTE | 2019-11-05 09:25 | NUR ---
PATIENT LEFT ROOM AMA VIA AMBULATION ACCOMPANIED BY SELF. PATIENT TAKEN HOME BY VIA PERSONAL VEHICLE.
[2019-11-06 15:09] LABS: HCV ULTRA QUANT PCR 121000 IU/mL (.)
== END 2019-11-05 09:25 | disposition left against medical advice (07) | DRG 815 ==
LOC: ER 22:03 → 1 SOUTH 11-04 04:34
PROVIDERS: ADMIT Internal Medicine; ATTEND Internal Medicine
DX: R59.0 Localized enlarged lymph nodes (principal); N39.0 Urinary tract infection, site not specified; Z86.14 Personal history of Methicillin resistant Staphylococcus aureus infection; Z87.442 Personal history of urinary calculi; Z87.891 Personal history of nicotine dependence; Z98.51 Tubal ligation status; F11.90 Opioid use, unspecified, uncomplicated; F15.90 Other stimulant use, unspecified, uncomplicated; F19.10 Other psychoactive substance abuse, uncomplicated; Z79.899 Other long term (current) drug therapy; Z53.29 Procedure and treatment not carried out because of patient's decision for other reasons
CPT/HCPCS: 36415; 71046; 71260; 72132; 80048; 80053; 80076; 80307; 81001; 81025; 82550; 83605; 83690; 83735; 83880; 84443; 84484; 85025; 85027; 85610; 85730; 86705; 86709; 86803; 87040; 87086; 87340; 87522; 87880; 90471; 90714; 93005; 94640; 96365; 96366; 96368; 99406; J0696; J1200; J1885; J3370; J7042; J7050; J7120; J7512; Q9967; 99285-25

== ENCOUNTER 2020-02-02 10:41 | Emergency (ER) | payer SELFPAY ==
[~2020-02-02] VITALS: Ht 165.1 cm; Wt 79.0 kg
[~2020-02-02 10:41] MED LIST changes: +CEPH-264 PO
[2020-02-02 10:53] VITALS: BP 162/90
[2020-02-02] MEDS ORDERED: NEOMY/BACITR/POLYMYXIN OINT PACKET. TP ONE (11:15)
--- NOTE | 2020-02-02 11:31 | PHYS DOC ---
Past History Past Medical History: Anxiety, Bronchitis, MRSA Additional Past Medical Histor: history of MRSA Past Surgical History: Tubal ligation Smoking: Cigarettes Alcohol Use: Rarely Drug Use: Amphetamine, Heroin, Marijuana General Adult EDM: Chief Complaint: LACERATION/AVULSION HPI: HPI: 34-year-old female past medical history of IV heroin abuse, presents to the ED with complaints of left eyebrow facial laceration that occur just prior to arrival. Patient states she tripped over her dog's, fell forward such that her face hit a plastic frame on the wall. Patient with no loss of consciousness, nausea, vomiting, headache or blurry vision. Patient is not on any anticoagulants. Tetanus is up-to-date. No prior head injury/ICH. Denies any current influence of alcohol or drugs such that this would impair her exam. Review of Systems: Review of Systems: Constitutional: Denies fever or chills Eyes: Denies change in visual acuity HENT: Denies nasal congestion or sore throat Respiratory: Denies cough or shortness of breath Cardiovascular: Denies chest pain or edema GI: Denies abdominal pain, nausea, vomiting, : Denies dysuria or hematuria Musculoskeletal: Denies back pain or joint pain Integument: Denies rash or crepitus Neurologic: Denies headache, focal weakness or sensory changes Endocrine: Denies polyuria or polydipsia Lymphatic: Denies swollen glands Psychiatric: Denies depression or anxiety Current Medications: Current Meds: Current Medications Medications (Trade) Dose Ordered Sig/Lucita Start Time Stop Time Status Last Admin Dose Admin Neomycin/ Polymyxin/ Bacitracin (Triple Antibiotic Ointment) 1 pkt 1X ONCE 02/02/20 11:15 02/02/20 11:16 DC Allergies: Allergies: Allergies Coded Allergies Type Severity Reaction Last Updated Verified No Known Drug Allergies 03/08/16 No Physical Exam: PE: Constitutional: Well developed, well nourished, no acute distress, non-toxic appearance. HENT: 1.5 cm laceration to medial aspect of patient's left eyebrow, no infraorbital pain or anesthesia Eyes: PERRLA, EOMI, conjunctiva normal, no discharge, Neck: Normal range of motion, supple, Cardiovascular: S1/2 present, regular rhythm Lungs & Thorax: Speaking in full sentences, bilateral equal chest rise, no tachypnea or increased work of breathing Abdomen: soft, no tenderness, Skin: Warm, dry, Back: No tenderness, Extremities: No tenderness, no cyanosis Neurologic: Alert and oriented X 3, normal motor function, normal sensory function, no focal deficits noted. [] Psychologic: Affect normal, judgement normal, mood normal. [] Nexus C-spine criteria are negative: There is no post midline tenderness, the patient is not intoxicated, there is a normal level of alertness, there are no focal neurologic deficits and there are no distracting injuries. Current Patient Data: Vital Signs: Vital Signs Date Time Temp Pulse Resp B/P (MAP) Pulse Ox O2 Delivery O2 Flow Rate FiO2 02/02/20 10:53 98.0 94 16 162/90 (114) 100 Room Air EKG: EKG: [] Radiology/Procedures: Radiology/Procedures: Indication: Left eyebrow 1.5cm laceration over medial eyebrow Procedure: The patient was placed in the appropriate position and anesthesia around the laceration performed with lidocaine. The area was then cleansed with NS. The laceration was closed with 5-0 nylon, total 3 sutures simple interrupted. The wound area was then dressed with triple antibiotic ointment and a Band-Aid. Total repaired wound length: 1.5 cm. Other Items: None. Repeat eye exam with EOMI The patient tolerated the procedure . Complications: None.[] Heart Score: Risk Factors: Risk Factors: DM, Current or recent (<one month) smoker, HTN, HLP, family history of CAD, obesity. Risk Scores: Score 0 - 3: 2.5% MACE over next 6 weeks - Discharge Home Score 4 - 6: 20.3% MACE over next 6 weeks - Admit for Clinical Observation Score 7 - 10: 72.7% MACE over next 6 weeks - Early Invasive Strategies Course & Med Decision Making: Course & Med Decision Making Pertinent Labs and Imaging studies reviewed. (See chart for details) Concern for accidental forehead injury w/left eyebrow laceration, no blurry vision or infraorbital nerve entrapment to suggest orbital wall fracture. No facial bone tenderness or midline neck tenderness. No headache or risk factors for intracranial hemorrhage. No indication for CT imaging at this time. Will discharge home with strict ED return precautions were given for blurry vision, repeat head injury, severe headache, n/v, facial pain, rash or fever. Encouraged urgent outpatient follow-up with PMD in 5 to 7 days for suture removal. Life- threatening processes were considered but are low suspicion at this time, given history, physical exam and ED workup. Pt was educated on all prescription medications and adverse effects. All patient's questions were answered and pt was stable at time of discharge. Life/limb-threatening differential includes but is not limited to, intracranial hemorrhage, facial bone fractures including inferior orbital wall, unstable cervical fracture or SCIWORA, fractures or joint dislocations, neurovascular injuries, I spoken with the patient and her caregivers. I explained the patient's condition, diagnoses and treatment plan based on the information available to me at this time. I have answered the patient and her caregiver's questions and addressed any concerns. The patient and her caregivers have a good understanding of patient's diagnosis, condition and treatment plan as can be expected at this point. Vital signs have been stable. Patient's condition is stable and appropriate for discharge from the emergency department. Patient will pursue further outpatient evaluation with primary care physician or other designated or consulting physician as outlined in the discharge instructions. The patient and/or caregivers are agreeable to this plan of care and follow-up instructions have been explained in detail. The patient and/or caregivers have received these instructions in written form and have expressed an understanding of the discharge instructions. The patient and/or caregivers are aware that any significant change of condition or worsening of symptoms should prompt immediate return to this or the closest emergency department or call to 911. Olimpia Disclaimer: Olimpia Disclaimer: This electronic medical record was generated, in whole or in part, using a voice recognition dictation system. Departure Departure: Impression: Primary Impression: Laceration of left eyebrow without complication Additional Impression: Blunt trauma of face Disposition: 01 DC HOME SELF CARE/HOMELESS Condition: STABLE Referrals: PCP,NO (PCP) FOLLOW UP WITH FAMILY MEDICINE: Family Medicine Address: [address] [place] [address], [address] [address] Patient Instructions: Facial Laceration, Laceration Care, Adult Additional Instructions: RETURN TO ED/URGENT CARE/PCP IN 5-7 DAYS FOR SUTURE REMOVAL EMERGENCY DEPARTMENT GENERAL DISCHARGE INSTRUCTIONS Thank you for coming to [facility] (ED) today and trusting us with you care. We trust that you had a positivie experience in our Emergency Department. If you wish to speak to the department management, you may call the director at [phone]. YOUR FOLLOW UP INSTRUCTIONS ARE FOLLOWS: 1. Do you have a private Doctor? If you do not have a private doctor, please ask for a resource list of physicians or clinics that may be able to assist you with follow up care. 2. The Emergency Physician has interpreted your x-rays. The X-Ray specialist will also review them. If there is a change in the findings, you will be notified in 48 hours when at all possible. 3. A lab test or culture has been done, your results will be reviewed and you will be notified if you need a change in treatment. ADDITIONAL INSTRUCTIONS AND INFORMATION: 1. Your care today has been supervised by a physician who is specially trained in emergency care. Many problems require more than one evaluation for a complete diagnosis and treatment. We recommend that you schedule your follow up appointment as recommended to ensure complete treatment of you illness or injury. If you are unable to obtain follow up care and continue to have a problem, or if your condition worsens, we recommend that you return to the ED. 2. We are not able to safely determine your condition over the phone nor are we able to give sound medical advice over the phone. For these safety reasons, if you call for medical advice we will ask you to come to the ED for further evaluation. 3. If you have any questions regarding these discharge instructions please call the ED at [phone]. SAFETY INFORMATION: In the interest of safety, wellness, and injury prevention; we encourage you to wear your sealbelt, if you smoke; quite smoking, and we encourage family to use a protective helmet for bicycling and other sporting events that present an increased risk for head injury. IF YOUR SYMPTOMS WORSEN OR NEW SYMPTOMS DEVELOP, OR YOU HAVE CONCERNS ABOUT YOUR CONDITION; OR IF YOUR CONDITION WORSENS WHILE YOU ARE WAITING FOR YOUR FOLLOW UP APPOINTMENT; EITHER CONTACT YOUR PRIMARY CARE DOCTOR, THE PHYSICIAN WHOSE NAME AND NUMBER YOU WERE Betty BETANCOURT, OR RETURN TO THE ED IMMEDIATELY. BLAIRE TALBERT DO Feb 02, 2020 11:31
== END 2020-02-02 11:42 | disposition home or self-care (01) ==
LOC: ER 10:41
DX: S01.112A Laceration without foreign body of left eyelid and periocular area, initial encounter (principal); F17.210 Nicotine dependence, cigarettes, uncomplicated; F41.9 Anxiety disorder, unspecified; W01.0XXA Fall on same level from slipping, tripping and stumbling without subsequent striking against object, initial encounter; Y93.89 Activity, other specified; Y92.89 Other specified places as the place of occurrence of the external cause; Y99.8 Other external cause status
CPT/HCPCS: 12011; 99282